=== PATIENT | female | born 1990 | race Caucasian/White ===

== ENCOUNTER 2018-11-02 15:07 | Emergency (ER) | payer OTHER ==
[~2018-11-02] VITALS: Ht 149.9 cm; Wt 62.1 kg
[2018-11-02] MEDS ORDERED: ONDANSETRON 4 MG/2 ML VIAL IM ONE (16:15)
[2018-11-02] MEDS ORDERED: HYDROMORPHONE 1 MG/1 ML DISP.SYRIN IM ONE (16:15)
[2018-11-02] MEDS ORDERED: HYDROMORPHONE 2 MG/1 ML DISP.SYRIN ONE (16:20)
[2018-11-02] MEDS ORDERED: ONDANSETRON 4 MG/2 ML VIAL ONE (16:21)
[2018-11-02 16:30] VITALS: BP 139/80
== END 2018-11-02 16:31 | disposition home or self-care (01) ==
LOC: ER 15:09
DX: M54.12 Radiculopathy, cervical region (principal); E03.9 Hypothyroidism, unspecified; Z88.8 Allergy status to other drugs, medicaments and biological substances
CPT/HCPCS: 96372 ×2; 99283; J1170; J2405; A4663

== ENCOUNTER 2020-06-03 19:10 | Emergency (ER) | payer SELFPAY ==
[~2020-06-03] VITALS: Ht 149.9 cm; Wt 72.6 kg
--- NOTE | 2020-06-03 21:16 | NUR ---
MSE COMPLETED, LEFT VELCRO WRIST SPLINT PLACED, PT D/C'D HOME ACI/RX X1 GIVEN. PT AMBULATED W/O DIFF/TOOK ALL BELONGINGS.
[2020-06-03 21:17] VITALS: BP 114/61
== END 2020-06-03 21:18 | disposition home or self-care (01) ==
LOC: ER 19:11
DX: M77.8 Other enthesopathies, not elsewhere classified (principal); E89.0 Postprocedural hypothyroidism
CPT/HCPCS: 73110; A4663

== ENCOUNTER 2021-01-23 18:07 | Emergency (ER) | payer MEDICAID ==
[~2021-01-23] VITALS: Ht 149.9 cm; Wt 54.0 kg
[2021-01-23] MEDS ORDERED: ONDA4TAB5 PO (19:14)
[2021-01-23] MEDS ORDERED: OXYC-128 PO (19:14)
[2021-01-23] MEDS ORDERED: HYDROMORPHONE 1 MG/1 ML DISP.SYRIN IM ONE (19:15)
[2021-01-23] MEDS ORDERED: ONDANSETRON ODT 4 MG TAB.RAPDIS SL ONE (19:15)
[2021-01-23] MEDS ORDERED: ONDANSETRON ODT 4 MG TAB.RAPDIS ONE (19:38)
[2021-01-23] MEDS ORDERED: HYDROMORPHONE 1 MG/1 ML DISP.SYRIN ONE (19:39)
[2021-01-23 19:52] VITALS: BP 108/75
== END 2021-01-23 19:53 | disposition home or self-care (01) ==
LOC: ER 18:08
DX: G89.29 Other chronic pain (principal); M54.5 Low back pain; M54.2 Cervicalgia; Z91.040 Latex allergy status; E89.0 Postprocedural hypothyroidism; Z88.8 Allergy status to other drugs, medicaments and biological substances
CPT/HCPCS: 96372; 99283; J1170; A4663; Q0162